=== PATIENT | male | born 1990 ===

== ENCOUNTER 2018-04-17 22:51 | Emergency (ER) | payer OTHER ==
[~2018-04-17] VITALS: Ht 162.6 cm; Wt 74.8 kg
[~2018-04-17 22:51] MED LIST: BENADRYL25 MG PO; CEFADROXIL500 MG PO; CIPRO XR 500 M500 MG; CIPRO500 MG PO; DOLOGEN CAPLET1 TAB PO; FLAGYL500MG PO; GILPHEX TR TAB1 EACH PO; IMODIUM A-D2 MG PO; INTESTINEX680 M1 PO; PEPCID40 MG PO
[2018-04-17] MEDS ORDERED: CLONAZEPAM0.5 MG (23:04)
[2018-04-18] MEDS ORDERED: CIPRO500 MG PO (09:41)
[2018-04-18] MEDS ORDERED: PROTONIX40 MG PO (09:41)
[2018-04-18] MEDS ORDERED: FLAGYL500MG PO (09:41)
== END 2018-04-18 07:55 | disposition home or self-care (01) ==
LOC: ER 22:51
DX: K57.92 Diverticulitis of intestine, part unspecified, without perforation or abscess without bleeding (principal)

== ENCOUNTER 2018-08-06 06:17 | Day surgery (SDC) | payer OTHER ==
[~2018-08-06 06:17] MED LIST changes: +CLONAZEPAM0.5 MG; +PROTONIX40 MG PO
== END 2018-08-06 09:53 | disposition home or self-care (01) ==
LOC: AMB-ENDOS 06:17
DX: K57.20 Diverticulitis of large intestine with perforation and abscess without bleeding (principal)